=== PATIENT | female | born 1940 | race Caucasian/White ===

== ENCOUNTER 2016-12-10 23:14 | Observation (INO) | payer MEDICARE, BC ==
[~2016-12-10] VITALS: Ht 157.5 cm; Wt 50.0 kg
[2016-12-11] VITALS (12 sets, daily range): BP systolic 130–161; BP diastolic 60–85; PULSE 73–95; RESP 17–18; Ht 157.5 cm; Wt 50.0 kg
[2016-12-11 00:08] LABS: ADD SCAN DIFF NO
[2016-12-11 00:10] LABS: BASOPHILS % 0.5 % (0.0-2.0); EOSINOPHILS # 0.1 10^3/ul (0.0-0.5); HEMATOCRIT 38.3 % (37.0-47.0); HEMOGLOBIN 12.9 g/dl (12.0-16.0); LYMPHOCYTES # 2.1 10^3/ul (0.8-2.9); LYMPHOCYTES % 25.4 % (15.0-51.0); MEAN CORPUSCULAR HEMOGLOBIN 28.3 pg (29.0-33.0); MEAN CORPUSCULAR HGB CONC 33.7 g/dl (32.0-37.0); MEAN PLATELET VOLUME 10.6 fl (7.4-10.4); MONOCYTE # 0.8 10^3/ul (0.3-0.9); NEUTROPHIL # 5.1 10^3/ul (1.6-7.5); NEUTROPHILS % 62.9 % (39.0-77.0); PLATELET COUNT 330 10^3/UL (140-415); RED BLOOD COUNT 4.56 10^6/ul (4.20-5.40); RED CELL DISTRIBUTION WIDTH 13.5 % (11.5-14.5); WHITE BLOOD COUNT 8.1 10^3/ul (4.8-10.8)
--- NOTE | 2016-12-11 00:18 | RADRPT ---
PROCEDURE: CT BRAIN WITHOUT CONTRAST CLINICAL INDICATION: 76-year-old female with change in mental status and numbness. TECHNIQUE: The study was performed utilizing GE Razmir VCT 64-slice CT scanner. Direct axial sections were obtained from the foramen magnum to the vertex without the use of intravenous contrast material. Sagittal and coronal reformations were obtained. Sagittal and coronal reformations were obtained. One or more the following dose reduction techniques were utilized: automated exposure cont rol, adjustment of the mA and/or kV according to patient's size or use of iterative reconstruction t echnique. The images were viewed on a PACS workstation. CTD/vol = 44.7 mGy; Total Exam DLP = 720.2 mGy-cm. COMPARISON: None. FINDINGS: There is xvgw-uc-fjarhyca degree of diffuse cortical and central atrophy with compensatory ventricul ar enlargement. There is no evidence for mass effect or midline shift. There are periventricular a reas of decreased density consistent with microangiopathic ischemic changes. There is no evidence f or acute intra or extra-axial blood. Calcifications are seen within the intracranial carotid and ihsan tebral arteries bilaterally. The bony calvarium is intact. There is opacification of the right sphen oid sinus. There is polypoidal mucosal thickening within the posterior left sphenoid sinus. The ma stoid air cells are without significant soft tissue. IMPRESSION: 1. Nsom-un-wenopetn diffuse atrophy. 2. Microangiopathic ischemic changes. 3. Vascular calcifications. 4. Opacified right sphenoid sinus with mild dependent polypoid mucosal thickening within the left s phenoid sinus. .Eder Daily MD, Date Time Electronically viewed and signed by .Eder Daily MD, on 12/11/2016 00:18 .M/
[2016-12-11 00:26] LABS: INR 0.86; PROTIME 11.7 Sec (12.2-14.2); PT RATIO 0.9
[2016-12-11] MEDS ORDERED: LABETALOL HCL 20MG INJ IV ONE (00:30)
[2016-12-11 00:34] LABS: ALBUMIN 4.7 g/dl (3.3-4.9); ALBUMIN/GLOBULIN RATIO 5.22; BILIRUBIN,INDIRECT 0.3 mg/dl (0-1.1); BILIRUBIN,TOTAL 0.3 mg/dl (0.2-1.3); CALCIUM 9.8 mg/dl (8.4-10.2); CREATININE 0.68 mg/dl (0.44-1.00); POTASSIUM 3.8 mmol/L (3.5-5.1); TOTAL PROTEIN 5.6 g/dl (6.1-8.1)
[2016-12-11 00:45] LABS: TROPONIN-I 0.034 ng/ml (0.00-0.12)
[2016-12-11] MEDS ORDERED: GLUCAGON 1 MG INJ IM PRN ×2 (01:00→06:15)
[2016-12-11] MEDS ORDERED: DEXTROSE 50% 50 ML SYRINGE IV PRN ×4 (01:00→06:15)
[2016-12-11] MEDS ORDERED: INSULIN REGULAR, HUMAN 100 UNIT/1 ML 3ML VIAL SC ONE (01:00)
[2016-12-11] MEDS ORDERED: GLUCOSE GEL 15 GRAM TUBE BUCCAL PRN ×2 (01:00→06:15)
[2016-12-11] MEDS ORDERED: GLUCOSE GEL 15 GRAM TUBE PO PRN ×4 (01:00→06:15)
--- NOTE | 2016-12-11 01:10 | RADRPT ---
PROCEDURE: Portable chest x-ray. CLINICAL INDICATION: Chest pain. TECHNIQUE: Portable AP view of the chest. COMPARISON: None. FINDINGS: There are mildly prominent interstitial lung markings. No pulmonary conolidation is identified. Th e cardiac silhouette is magnified. No pleural effusion is seen. There is no pneumothorax. IMPRESSION: 1. Mildly prominent interstitial lung markings, possibly representing interstitial edema, a viral c hest infection, and/or chronic lung changes. RPTAT: HTAR .Taras Mancera MD, MD Date Time Electronically viewed and signed by .Taras Mancera MD, on 12/11/2016 01:09 .R/
[2016-12-11] MEDS ORDERED: SIMV10TA PO (01:23)
[2016-12-11] MEDS ORDERED: LINA1TAB7 PO (01:23)
[2016-12-11] MEDS ORDERED: AZIT250T6 PO (01:23)
[2016-12-11] MEDS ORDERED: DAPA10TA PO (01:23)
--- NOTE | 2016-12-11 02:23 | ERA ---
ER Documentation Chief Complaint Date/Time DATE: 12/11/16 TIME: 02:22 Chief Complaint left side face numbness HPI This is a 76 year female left-sided facial numbness this is resolved. She states that she had numbness of the face with severely elevated blood sugars. No fevers no chills. No focal muscular complaints. No focal neurological complaints. No ataxia. No other current issues ROS All systems reviewed and are negative except as per history of present illness. Medications Home Meds Reported Medications Azithromycin* (Azithromycin*) 250 Mg Tablet, 250 MG PO DAILY, #4 TAB 12/11/16 Simvastatin* (Zocor*) 10 Mg Tablet, 10 MG PO QHS, #30 TAB 12/11/16 Dapagliflozin Propanediol (Farxiga) 10 Mg Tablet, 10 MG PO DAILY, #30 TAB 12/11/16 Linagliptin/Metformin HCl (Jentadueto Xr 2.5 mg-1,000 mg) 1 Each Tab.bp.24h, 1 EACH PO, TAB 12/11/16 Allergies Allergies: Coded Allergies: Penicillins (Unverified Allergy, Mild, HIVES, 12/11/16) PMhx/Soc Medical and Surgical Hx: pt denies Surgical Hx History of Surgery: Yes (RIGHT FOOT, 3X) Anesthesia Reaction: No Hx Neurological Disorder: No Hx Respiratory Disorders: No Hx Cardiac Disorders: Yes (HTN) Hx Psychiatric Problems: No Hx Miscellaneous Medical Probl: Yes Hx Alcohol Use: No Hx Substance Use: No Hx Tobacco Use: No Smoking Status: Never smoker Physical Exam Vitals Vital Signs Date Time Temp Pulse Resp B/P Pulse Ox O2 Delivery O2 Flow Rate FiO2 12/11/16 00:58 20 20 141/83 96 Room Air 12/10/16 23:26 98.0 83 20 183/95 98 Physical Exam Const: [] Head: Atraumatic Eyes: Normal Conjunctiva ENT: Normal External Ears, Nose and Mouth. Neck: Full range of motion..~ No meningismus. Resp: Clear to auscultation bilaterally Cardio: Regular rate and rhythm, no murmurs Abd: Soft, non tender, non distended. Normal bowel sounds Skin: No petechiae or rashes Back: No midline or flank tenderness Ext: No cyanosis, or edema Neur: Awake and alert Psych: Normal Mood and Affect Result Diagram: 12/10/16 2355 12/10/16 2355 Results 24 hrs Laboratory Tests Test 12/10/16 23:55 12/11/16 02:02 White Blood Count 8.110^3/ul Red Blood Count 4.5610^6/ul Hemoglobin 12.9g/dl Hematocrit 38.3% Mean Corpuscular Volume 84.0fl Mean Corpuscular Hemoglobin 28.3pg Mean Corpuscular Hemoglobin Concent 33.7g/dl Red Cell Distribution Width 13.5% Platelet Count 74990^3/UL Mean Platelet Volume 10.6fl Neutrophils % 62.9% Lymphocytes % 25.4% Monocytes % 10.0% Eosinophils % 1.0% Basophils % 0.5% Nucleated Red Blood Cells % 0.0/100WBC Neutrophils # 5.110^3/ul Lymphocytes # 2.110^3/ul Monocytes # 0.810^3/ul Eosinophils # 0.110^3/ul Basophils # 0.010^3/ul Nucleated Red Blood Cells # 0.010^3/ul Prothrombin Time 11.7Sec Prothrombin Time Ratio 0.9 INR International Normalized Ratio 0.86 Activated Partial Thromboplast Time 24.0Sec Sodium Level 134mmol/L Potassium Level 3.8mmol/L Chloride Level 92mmol/L Carbon Dioxide Level 28mmol/L Anion Gap 18 Blood Urea Nitrogen 18mg/dl Creatinine 0.68mg/dl Glucose Level 492mg/dl Calcium Level 9.8mg/dl Total Bilirubin 0.3mg/dl Direct Bilirubin 0.00mg/dl Indirect Bilirubin 0.3mg/dl Aspartate Amino Transf (AST/SGOT) 22IU/L Alanine Aminotransferase (ALT/SGPT) 32IU/L Alkaline Phosphatase 237IU/L Troponin I 0.034ng/ml B-Type Natriuretic Peptide 128PG/ML Total Protein 5.6g/dl Albumin 4.7g/dl Globulin 0.90g/dl Albumin/Globulin Ratio 5.22 Bedside Glucose 363mg/dL Current Medications Medications (Trade) Dose Ordered Sig/Srinivasan Route PRN Reason Start Time Stop Time Status Last Admin Dose Admin Labetalol HCl (Labetalol) 20 mg ONCE ONCE IV 12/11/16 00:30 12/11/16 00:31 DC 12/11/16 00:37 Insulin Human Regular (Humulin R) 6 unit ONCE ONCE SC 6/14/17 01:00 12/11/16 01:01 DC 12/11/16 01:26 Miscellaneous Information 1 ea NOTE XX 12/11/16 01:00 Glucose (Glutose) 15 gm Q15M PRN PO DECREASED GLUCOSE 12/11/16 01:00 Glucose (Glutose) 22.5 gm Q15M PRN PO DECREASED GLUCOSE 12/11/16 01:00 Dextrose (D50w Syringe) 25 ml Q15M PRN IV DECREASED GLUCOSE 12/11/16 01:00 Dextrose (D50w Syringe) 50 ml Q15M PRN IV DECREASED GLUCOSE 12/11/16 01:00 Glucagon (Glucagen) 1 mg Q15M PRN IM DECREASED GLUCOSE 12/11/16 01:00 Glucose (Glutose) 15 gm Q15M PRN BUCCAL DECREASED GLUCOSE 12/11/16 01:00 Procedures/MDM EKG: Rate/Rhythm: Normal Sinus Rhythm QRS, ST, T-waves: No changes consistent w/ acute ischemia Impression: No evidence of ischemia or arrhythmia Chest X-ray 1V Interpreted by me: Soft Tissue: No acute abnormalities Bones: No acute abnormalities Mediastinum/Cardiac Silhouette/Lungs: No acute abnormalities CT of the head is negative Medical decision-makin-year-old TIA-like symptoms. At this point clinically stable. Hyperglycemia treated with subcu insulin. Patient will be admitted to hospitalist to telemetry setting. Critical Care: Time: 45 minutes Treatments/Evaluations: Close monitoring and treatment of unstable vital signs, cardiorespiratory, and neurologic status, while maintaining tight balance of fluid, respiratory, and cardiac interventions. Departure Diagnosis: Primary Impression: TIA (transient ischemic attack) Qualified Code: G45.9 - Transient cerebral ischemia, unspecified type Additional Impression: Hyperglycemia Condition: Serious KARENJOYCERAFALRomina Dec 11, 2016 02:23
[2016-12-11] MEDS ORDERED: NACL 0.9% 3 ML SYG IV SCH (07:30)
[2016-12-11] MEDS ORDERED: PANTOPRAZOLE 40 MG INJ IV SCH (07:30)
[2016-12-11] MEDS ORDERED: ONDANSETRON 4 MG INJ IV PRN (07:30)
--- NOTE | 2016-12-11 08:35 | HP ---
Date/Time of Note Date/Time of Note DATE: 12/11/16 TIME: 08:17 Assessment/Plan VTE Prophylaxis VTE Prophylaxis Intervention: SCD's Lines/Catheters IV [facility] Saline Lock Assessment/Plan Chief Complaint/Hosp Course This is a 76 year female being admitted to telemetry floor for: #1 left facial numbness: At the current time patient's symptoms have resolved. She did have elevated blood sugars in the 400s. Her facial numbness could have been related to the elevated blood sugars. However there was concern for possible TIA during the workup in the ED. CAT scan of the head was negative. Will order Dopplers and MRI of the brain. Will get a neurology consult. #2 diabetes mellitus: Patient had adequately blood sugar documented at 492 in the ED. patient currently does not appear to be in DKA. Will get a urinalysis. Currently is only on oral medications at home. Will get an A1c level. Put patient on insulin sliding scale. #3 hypertension: We will continue to monitor blood pressure continue medications. #4: Elevated alkaline phosphatase: This likely could be an acute phase reactant. Will trend if it continues to rise we will get a right upper quadrant ultrasound. #5 abnormal chest x-ray: Patient denies any cough there are no fevers or elevated white blood cell count at this time. We will continue to monitor the patient for any signs of infection. #5 DVT and GI prophylaxis: SCDs, Protonix. Problems: HPI/ROS Admit Date/Time Admit Date/Time Dec 11, 2016 at 01:36 Hx of Present Illness Chief complaint: Facial numbness This is a 76 year female left-sided facial numbness. She states that she had numbness of the face with severely elevated blood sugars. No fevers no chills. No focal muscular complaints. No focal neurological complaints. No ataxia. No other current issues. The numbness has since resolved being at the ER. Allergies: Penicillin Medications: See SHARMIN INMAN Const: As per HPI Eyes : No pain discharge or redness or change in visual acuity ENT: No pain, sore throat, congestion, congestion, dysphagia or discharge Respiratory: No shortness of breath, cough, sputum, wheezing, or pleuritic pain Cardiovascular: No chest pain, palpitation, PND, or edema GI : no change in appetite, abdominal pain, nausea, vomiting, diarrhea, constipation, or change in the color his stool Genitourinary: No dysuria, hematuria, flank pain , discharge or CVA tenderness Musculoskeletal: No joint pain, back pain, neck pain, restricted range of motion in neck or joints Skin: No rash, bruising or hives Neuro: As per HPI Endocrine: As per HPI Psych: No hallucination, depression, anxiety or suicidal ideation PMH/Family/Social Past Medical History Diabetes mellitus, hypertension Past Surgical History Right ankle surgery Family History Significant Family History: no pertinent family hx Social History Alcohol Use: none Smoking Status: Never smoker Drug Use: none Exam/Review of Systems Vital Signs Vitals Vital Signs Date Time Temp Pulse Resp B/P Pulse Ox O2 Delivery O2 Flow Rate FiO2 12/11/16 08:14 98.0 55 18 161/81 94 12/11/16 04:24 Room Air Exam Exam General: Patient is well-developed well-nourished The patient is alert oriented -3 lying comfortably in bed. HEENT: Atraumatic, normocephalic. The pupils are equal, round and reactive. Extraocular motor are intact Neck: Supple with full range of motion. No rigidity or meningismus Chest: Nontender Lungs: Clear to auscultation bilaterally no crackles rales or wheezing Heart: Normal S1-S2, Regular rhythm and rate. Abdomen: Soft , nontender, nondistended , bowel sounds are present. No guarding no rebound tenderness , No masses or organomegaly. No costovertebral temporal angle mass Extremities: Normal to inspection, no edema no cyanosis Neurologic: Normal mental status, speech normal, cranial nerves II through XII are intact, motor and sensory are intact, no focal weakness, patient currently states that her left-sided facial numbness has resolved. Additional Comments ROCEDURE: CT BRAIN WITHOUT CONTRAST CLINICAL INDICATION: 76-year-old female with change in mental status and numbness. TECHNIQUE: The study was performed utilizing [employer]TEKT 64-slice CT scanner. Direct axial sections were obtained from the foramen magnum to the vertex without the use of intravenous contrast material. Sagittal and coronal reformations were obtained. Sagittal and coronal reformations were obtained. One or more the following dose reduction techniques were utilized: automated exposure control, adjustment of the mA and/or kV according to patient's size or use of iterative reconstruction technique. The images were viewed on a PACS workstation. CTD/vol = 44.7 mGy; Total Exam DLP = 720.2 mGy-cm. COMPARISON: None. FINDINGS: There is rygr-ob-hawundri degree of diffuse cortical and central atrophy with compensatory ventricular enlargement. There is no evidence for mass effect or midline shift. There are periventricular areas of decreased density consistent with microangiopathic ischemic changes. There is no evidence for acute intra or extra-axial blood. Calcifications are seen within the intracranial carotid and vertebral arteries bilaterally. The bony calvarium is intact. There is opacification of the right sphenoid sinus. There is polypoidal mucosal thickening within the posterior left sphenoid sinus. The mastoid air cells are without significant soft tissue. IMPRESSION: 1. Uwfj-kt-pevvlafp diffuse atrophy. 2. Microangiopathic ischemic changes. 3. Vascular calcifications. 4. Opacified right sphenoid sinus with mild dependent polypoid mucosal thickening within the left sphenoid sinus. .Eder Daily MD, MD Date Time Electronically viewed and signed by .Eder Daily MD, MD on 12/11/2016 00:18 PROCEDURE: Portable chest x-ray. CLINICAL INDICATION: Chest pain. TECHNIQUE: Portable AP view of the chest. COMPARISON: None. FINDINGS: There are mildly prominent interstitial lung markings. No pulmonary conolidation is identified. The cardiac silhouette is magnified. No pleural effusion is seen. There is no pneumothorax. IMPRESSION: 1. Mildly prominent interstitial lung markings, possibly representing interstitial edema, a viral chest infection, and/or chronic lung changes. Labs Result Diagram: 12/10/16 2355 12/10/16 2355 Medications Medications Current Medications Diagnostic Test (Pha) (Accu-Chek) 1 ea 02 XX ; Start 12/12/16 at 02:00 Miscellaneous Information 1 ea NOTE XX ; Start 12/11/16 at 06:15 Glucose (Glutose) 15 gm Q15M PRN PO DECREASED GLUCOSE; Start 12/11/16 at 06:15 Glucose (Glutose) 22.5 gm Q15M PRN PO DECREASED GLUCOSE; Start 12/11/16 at 06: 15 Dextrose (D50w Syringe) 25 ml Q15M PRN IV DECREASED GLUCOSE; Start 12/11/16 at 06:15 Dextrose (D50w Syringe) 50 ml Q15M PRN IV DECREASED GLUCOSE; Start 12/11/16 at 06:15 Glucagon (Glucagen) 1 mg Q15M PRN IM DECREASED GLUCOSE; Start 12/11/16 at 06:15 Glucose (Glutose) 15 gm Q15M PRN BUCCAL DECREASED GLUCOSE; Start 12/11/16 at 06 :15 Ondansetron HCl (Zofran Inj) 4 mg Q6H PRN IV NAUSEA AND/OR VOMITING; Start at 07:30 Pantoprazole (Protonix Iv) 40 mg DAILY@06 IV ; Start 12/11/16 at 07:30 GELY ADRIAN Dec 11, 2016 08:28
[2016-12-11] MEDS: INSULIN ASPART [NOVOLOG] 3 ML PEN SC SCH ×5 (08:36→21:21)
--- NOTE | 2016-12-11 11:06 | RADRPT ---
PROCEDURE: Carotid ultrasound CLINICAL INDICATION: Left-sided facial numbness, transient ischemic attack, carotid bruits TECHNIQUE: Del Cid scale, color doppler, spectral doppler ultrasound of the bilateral carotid and ihsan tebral arteries. This study indirectly references the measurement of the distal ICA diameter as the denominator for s tenosis measurement. Validated velocity measurements with angiographic measurements, velocity criter ia are extrapolated from diameter data as defined by: *Cartoid artery stenosis: del cid-scale and Doppl er US diagnosis. Society of Radiologists in Ultrasound Consensus Conference. Radiology 2003; 229: 34 0-346. SRU Consensus Conference Criteria for the Diagnosis of Carotid Artery Stenosis* Degree of Stenosis, % ICA PSV, cm/sec Plaque Estimate, % ICA/CCA PSV Ratio Normal <125 None <2.0 <50 <125 <50 <2.0 50 69 125-230 >50 2.0-4.0 >70 but less than near occlusion >230 >50 <4.0 Near occlusion High, low, or undetectable Visible Variable Total occlusion Undetectable Visible, no detectable lumen Not applicable COMPARISON: No prior studies are available for comparison. FINDINGS: Location Right CCA58 cm/sec Prox ICA 34 cm/sec Mid ICA51 cm/sec Dist ICA49 cm/sec ECA83 cm/sec ICA/CCA1.5 Left CCA51 cm/sec Prox ICA 50 cm/sec Mid ICA41 cm/sec Dist ICA47 cm/sec ECA69 cm/sec ICA/CCA1.0 Plaque burden: No significant plaque is seen. Antegrade flow is seen within the vertebral arteries bilaterally. IMPRESSION: No evidence of a hemodynamically significant carotid stenosis. RPTAT: AADD .Gurvinder Howard MD, MD Date Time Electronically viewed and signed by .Gurvinder Howard MD, on 12/11/2016 11:05 .B/
[2016-12-11 11:24] LABS: MAGNESIUM 1.8 mg/dl (1.7-2.5)
--- NOTE | 2016-12-11 12:34 | CONS ---
Date/Time of Note Date/Time of Note DATE: 12/11/16 TIME: 12:29 Assessment/Plan Assessment/Plan Chief Complaint/Hosp Course 76 yo female with HTN, DM admitted with hyperglycemia and left facial numbness, exam consistent with mild left facial droop. Continue CVA workup, MRI Brain is planned without contrast. Continue aspirin. goal SBP <130/80 Check HBA1C , FLP, goal HBA1C <7.0% to optimize risk factors for secondary stroke prevention. ECHO PT/OT/Speech Problems: Consultation Date/Type/Reason Admit Date/Time Dec 11, 2016 at 01:36 Date of Consultation: Dec 11, 2016 Type of Consultation: Neurology Reason for Consultation facial weakness Referring Provider: NINI ADAMSON Hx of Present Illness 76 yo female with history of DM, HTN admitted with uncontrolled glucose in 400 range and left facial numbness. Since admission she reports improvement of symptoms, has no prior history of CVA. CTH unrevealing on admission. Carotid duplex negative. Patient is a poor historian but denies any active symptoms. Social History Alcohol Use: none Smoking Status: Never smoker Drug Use: none Exam/Review of Systems Vital Signs Vitals Vital Signs Date Time Temp Pulse Resp B/P Pulse Ox O2 Delivery O2 Flow Rate FiO2 12/11/16 12:13 95 12/11/16 11:52 98.6 18 130/60 94 12/11/16 04:24 Room Air Exam Constitutional: alert, frail, oriented Head: atraumatic, normocephalic Neurological: DTR's symmetric (mild left NLF flattening), nl mental status, nl speech, nl strength Results Result Diagram: 12/10/16 2355 12/10/16 2355 Results 24 hrs Laboratory Tests Test 12/10/16 23:55 12/11/16 02:02 12/11/16 08:24 12/11/16 09:30 White Blood Count 8.1 Red Blood Count 4.56 Hemoglobin 12.9 Hematocrit 38.3 Mean Corpuscular Volume 84.0 Mean Corpuscular Hemoglobin 28.3 L Mean Corpuscular Hemoglobin Concent 33.7 Red Cell Distribution Width 13.5 Platelet Count 330 Mean Platelet Volume 10.6 H Neutrophils % 62.9 Lymphocytes % 25.4 Monocytes % 10.0 Eosinophils % 1.0 Basophils % 0.5 Nucleated Red Blood Cells % 0.0 Neutrophils # 5.1 Lymphocytes # 2.1 Monocytes # 0.8 Eosinophils # 0.1 Basophils # 0.0 Nucleated Red Blood Cells # 0.0 Prothrombin Time 11.7 L Prothrombin Time Ratio 0.9 INR International Normalized Ratio 0.86 Activated Partial Thromboplast Time 24.0 L Sodium Level 134 L Potassium Level 3.8 Chloride Level 92 L Carbon Dioxide Level 28 Anion Gap 18 H Blood Urea Nitrogen 18 Creatinine 0.68 Glucose Level 492 *H Calcium Level 9.8 Total Bilirubin 0.3 Direct Bilirubin 0.00 Indirect Bilirubin 0.3 Aspartate Amino Transf (AST/SGOT) 22 Alanine Aminotransferase (ALT/SGPT) 32 Alkaline Phosphatase 237 H Troponin I 0.034 B-Type Natriuretic Peptide 128 Total Protein 5.6 L Albumin 4.7 Globulin 0.90 L Albumin/Globulin Ratio 5.22 Bedside Glucose 363 H 355 H Hemoglobin A1c Magnesium Level 1.8 Triglycerides Level 97 Cholesterol Level 235 H LDL Cholesterol, Calculated 138 HDL Cholesterol 78 Cholesterol/HDL Ratio 3.0 Thyroid Stimulating Hormone (TSH) Pending Test 12/11/16 12:10 Bedside Glucose 275 H Medications Medications Current Medications Diagnostic Test (Pha) (Accu-Chek) 1 ea 02 XX ; Start 12/12/16 at 02:00 Miscellaneous Information 1 ea NOTE XX ; Start 12/11/16 at 06:15 Glucose (Glutose) 15 gm Q15M PRN PO DECREASED GLUCOSE; Start 12/11/16 at 06:15 Glucose (Glutose) 22.5 gm Q15M PRN PO DECREASED GLUCOSE; Start 12/11/16 at 06: 15 Dextrose (D50w Syringe) 25 ml Q15M PRN IV DECREASED GLUCOSE; Start 12/11/16 at 06:15 Dextrose (D50w Syringe) 50 ml Q15M PRN IV DECREASED GLUCOSE; Start 12/11/16 at 06:15 Glucagon (Glucagen) 1 mg Q15M PRN IM DECREASED GLUCOSE; Start 12/11/16 at 06:15 Glucose (Glutose) 15 gm Q15M PRN BUCCAL DECREASED GLUCOSE; Start 12/11/16 at 06 :15 Ondansetron HCl (Zofran Inj) 4 mg Q6H PRN IV NAUSEA AND/OR VOMITING; Start at 07:30 Pantoprazole (Protonix Iv) 40 mg DAILY@06 IV Last administered on 12/11/16t 08: 36; Admin Dose 40 MG; Start 12/11/16 at 07:30 YAKOV FERNÁNDEZ MD Dec 11, 2016 12:34
[2016-12-11] MEDS ORDERED: ASPIRIN (EC) 81 MG TAB PO ONE (13:00)
[2016-12-11 15:07] LABS: ALBUMIN 4.4 g/dl (3.3-4.9); ALBUMIN/GLOBULIN RATIO 1.46; BILIRUBIN,INDIRECT 0.3 mg/dl (0-1.1); BILIRUBIN,TOTAL 0.3 mg/dl (0.2-1.3); CALCIUM 9.5 mg/dl (8.4-10.2); CREATININE 0.7 mg/dl (0.44-1.00); POTASSIUM 4.3 mmol/L (3.5-5.1); TOTAL PROTEIN 7.4 g/dl (6.1-8.1)
[2016-12-11] MEDS ORDERED: INSULIN GLARGINE [LANtus] 3 ML PEN SC SCH (15:30)
--- NOTE | 2016-12-11 17:11 | RADRPT ---
PROCEDURE: MRI Brain without contrast. CLINICAL INDICATION: TIA, facial numbness TECHNIQUE: Multiplanar MRI of the brain without contrast was performed on a 1.5 T scanner with the following sequences obtained: T1-weighted, T2-weighted/FLAIR, diffusion weighted (with ADC map), GR E. COMPARISON: CT brain 12/11/2016 FINDINGS: No acute/recent ischemic infarction or intracranial hemorrhage / blood degradation products are iden tified. No extra-axial fluid collection is seen. There is no mass effect. No midline shift is identified. The ventricles and sulci are mildly enlarged, compatible with generalized volume loss. Mild areas of increased T2 / FLAIR signal intensity are present in the periventricular and deep whit e matter, nonspecific but likely related to chronic small vessel ischemic changes. Flow voids are identified in the proximal intracranial arteries and dural sinuses suggesting patency . There is complete right and partial left sphenoid sinus opacification. IMPRESSION: 1. No evidence of acute intracranial pathology. 2. Mild generalized volume loss, with mild chronic small vessel ischemic changes. RPTAT: GG .Ramone Jernigan MD, MD Date Time Electronically viewed and signed by .Ramone Jernigan MD, on 12/11/2016 17:11 .O/
[2016-12-12] VITALS (12 sets, daily range): BP systolic 98–146; BP diastolic 52–72; PULSE 67–79; RESP 18–19
[2016-12-12] MEDS ORDERED: ACCU-CHEK XX SCH (02:00)
[2016-12-12] MEDS: ACCU-CHEK XX SCH (02:09)
[2016-12-12] MEDS: PANTOPRAZOLE (EC) 40 MG TAB PO SCH (06:03)
[2016-12-12] MEDS: INSULIN ASPART [NOVOLOG] 3 ML PEN SC SCH ×7 (07:58→20:58)
[2016-12-12 08:10] LABS: ADD SCAN DIFF NO
[2016-12-12 08:16] LABS: BASOPHIL # 0.1 10^3/ul (0.0-0.1); BASOPHILS % 0.8 % (0.0-2.0); EOSINOPHILS # 0.1 10^3/ul (0.0-0.5); EOSINOPHILS % 1.3 % (0.0-7.0); HEMATOCRIT 37.4 % (37.0-47.0); HEMOGLOBIN 12.7 g/dl (12.0-16.0); LYMPHOCYTES # 1.8 10^3/ul (0.8-2.9); LYMPHOCYTES % 23.8 % (15.0-51.0); MEAN CORPUSCULAR HEMOGLOBIN 29.1 pg (29.0-33.0); MEAN CORPUSCULAR VOLUME 85.8 fl (82.0-101.0); MEAN PLATELET VOLUME 10.9 fl (7.4-10.4); MONOCYTE # 0.6 10^3/ul (0.3-0.9); MONOCYTES % 8.3 % (0.0-11.0); NEUTROPHIL # 5.1 10^3/ul (1.6-7.5); NEUTROPHILS % 65.4 % (39.0-77.0); PLATELET COUNT 328 10^3/UL (140-415); RED BLOOD COUNT 4.36 10^6/ul (4.20-5.40); RED CELL DISTRIBUTION WIDTH 13.9 % (11.5-14.5); WHITE BLOOD COUNT 7.7 10^3/ul (4.8-10.8)
[2016-12-12 08:50] LABS: ALBUMIN 4.3 g/dl (3.3-4.9); ALBUMIN/GLOBULIN RATIO 1.48; BILIRUBIN,INDIRECT 0.4 mg/dl (0-1.1); BILIRUBIN,TOTAL 0.4 mg/dl (0.2-1.3); CALCIUM 9.5 mg/dl (8.4-10.2); CREATININE 0.72 mg/dl (0.44-1.00); POTASSIUM 4.7 mmol/L (3.5-5.1); TOTAL PROTEIN 7.2 g/dl (6.1-8.1)
[2016-12-12] MEDS: LISINOPRIL 5 MG TAB PO SCH (12:12)
[2016-12-12] MEDS: CHOLECALCIFEROL 1,000 UNIT TAB PO SCH (12:16)
[2016-12-12 13:18] LABS: THYROID STIMULATING HORMONE 0.494 MIU/L (0.465-4.680)
--- NOTE | 2016-12-12 16:03 | RADRPT ---
Echocardiogram Report Patient Name: KEVIN CLEVELAND Gender: Female Date: 1940 Study Date: 12-Dec-2016 Processing Associate: Sh[facility] Location: 5553 Ref. Physician: BLANCA YANG Quality: Adequate Procedures: Transthoracic echocardiogram with complete 2D, M-Mode, and doppler examination. Indications: Evaluate Left Ventricular function. 2D/M Mode Doppler Measurement Value Normal Ranges Measurement Value Normal Ranges LVIDd 2D 3.6 3.5 - 5.6 cm AV Peak John 1.0 m/sec LVIDs 2D 2.5 2.1 - 4.1 cm AV Peak PG 4.0 mmHg LVPWd 2D 1.0 0.6 - 1.1 cm LVOT Peak John 0.9 m/sec IVSd 2D 1.0 0.6 - 1.1 cm LVOT Peak PG 3.2 mmHg AoR Diam 2D 2.5 2.0 - 3.7 cm MV E Peak John 0.6 m/sec EDV 2D 53.7 cm3 MV A Peak John 1.0 m/sec ESV 2D 16.3 cm3 MV E/A 0.6 LA Dimen 2D 2.9 2.3 - 4.0 cm MV Decel Time 372 msec MV Decel [place] 2 MV E/A 0.6 Findings Left Ventricle: Normal left ventricular systolic function. Normal left ventricular cavity size. Normal left ventricular wall thickness. Ejection fraction is visually estimated at 65 %. Tissue Doppler/Mitral Doppler indices are consistent with impaired relaxation (Stage I diastolic dysfunction). Right Ventricle: Normal right ventricular size. Normal right ventricular systolic function. Left Atrium: The left atrium is normal in size. Right Atrium: The right atrium is normal in size. Mitral Valve: Normal appearance and function of the mitral valve with trace physiologic regurgitation. Aortic Valve: Normal appearance of the aortic valve. No significant aortic stenosis or insufficiency. Tricuspid Valve: Normal appearance and function of the tricuspid valve with trace physiologic regurgitation. Pulmonic Valve: Pulmonic valve not well visualized. There is trace pulmonic regurgitation. Pericardium: Normal pericardium with no significant pericardial effusion. Aorta: Normal aortic root. IVC: Normal size and normal respiratory collapse consistent with normal right atrial pressure. Conclusions Normal left ventricular systolic function. Normal left ventricular cavity size. Normal left ventricular wall thickness. Ejection fraction is visually estimated at 65 %. Tissue Doppler/Mitral Doppler indices are consistent with impaired relaxation (Stage I diastolic dysfunction). Normal right ventricular size. Normal right ventricular systolic function. The left atrium is normal in size. The right atrium is normal in size. No significant valvular stenosis or regurgitation seen. Normal pericardium with no significant pericardial effusion. Electronically Signed By: Burak Chandler 12-Dec-2016 16:03:01 0700 Patient Name: KEVIN CLEVELAND Study Date: 12-Dec-[id number]
[2016-12-12] MEDS: metFORMIN 500 MG TAB GTB SCH (17:15)
--- NOTE | 2016-12-12 17:52 | CONS ---
Date/Time of Note Date/Time of Note DATE: 12/12/16 TIME: 17:48 Consult Date/Type/Reason Admit Date/Time Dec 11, 2016 at 01:36 Initial Consult Date 12/11/16 Type of Consultation: Neurology Reason for Consultation TIA eval Ordering Provider: NINI ADAMSON Subjective no further events Objective Vital Signs Date Time Temp Pulse Resp B/P Pulse Ox O2 Delivery O2 Flow Rate FiO2 12/12/16 16:08 98.0 75 18 140/69 99 12/11/16 04:24 Room Air Intake and Output 12/11/16 12/11/16 12/12/16 15:00 23:00 07:00 Intake Total 400 ml 210 ml Balance 400 ml 210 ml Exam Constitutional: alert, frail, oriented Head: atraumatic, normocephalic Neurological: DTR's symmetric (mild left NLF flattening), nl mental status, nl speech, nl strength Results/Medications Result Diagram: 12/12/16 0622 12/12/16 0622 Results 24 hrs Laboratory Tests Test 12/11/16 17:57 12/11/16 21:18 12/12/16 02:03 12/12/16 06:22 Bedside Glucose 323 H 283 H 290 H White Blood Count 7.7 Red Blood Count 4.36 Hemoglobin 12.7 Hematocrit 37.4 Mean Corpuscular Volume 85.8 Mean Corpuscular Hemoglobin 29.1 Mean Corpuscular Hemoglobin Concent 34.0 Red Cell Distribution Width 13.9 Platelet Count 328 Mean Platelet Volume 10.9 H Neutrophils % 65.4 Lymphocytes % 23.8 Monocytes % 8.3 Eosinophils % 1.3 Basophils % 0.8 Nucleated Red Blood Cells % 0.0 Neutrophils # 5.1 Lymphocytes # 1.8 Monocytes # 0.6 Eosinophils # 0.1 Basophils # 0.1 Nucleated Red Blood Cells # 0.0 Sodium Level 135 Potassium Level 4.7 Chloride Level 99 Carbon Dioxide Level 28 Anion Gap 13 Blood Urea Nitrogen 19 Creatinine 0.72 Glucose Level 311 H Calcium Level 9.5 Total Bilirubin 0.4 Direct Bilirubin 0.00 Indirect Bilirubin 0.4 Aspartate Amino Transf (AST/SGOT) 24 Alanine Aminotransferase (ALT/SGPT) 34 Alkaline Phosphatase 106 Total Protein 7.2 Albumin 4.3 Globulin 2.90 Albumin/Globulin Ratio 1.48 Test 12/12/16 07:56 12/12/16 12:10 12/12/16 17:14 Bedside Glucose 294 H 278 H 205 Medications Current Medications Diagnostic Test (Pha) (Accu-Chek) 1 ea 02 XX Last administered on 12/12/16 02: 09; Admin Dose 1 EA; Start 12/12/16 at 02:00 Miscellaneous Information 1 ea NOTE XX ; Start 12/11/16 at 06:15 Glucose (Glutose) 15 gm Q15M PRN PO DECREASED GLUCOSE; Start 12/11/16 at 06:15 Glucose (Glutose) 22.5 gm Q15M PRN PO DECREASED GLUCOSE; Start 12/11/16 at 06: 15 Dextrose (D50w Syringe) 25 ml Q15M PRN IV DECREASED GLUCOSE; Start 12/11/16 at 06:15 Dextrose (D50w Syringe) 50 ml Q15M PRN IV DECREASED GLUCOSE; Start 12/11/16 at 06:15 Glucagon (Glucagen) 1 mg Q15M PRN IM DECREASED GLUCOSE; Start 12/11/16 at 06:15 Glucose (Glutose) 15 gm Q15M PRN BUCCAL DECREASED GLUCOSE; Start 12/11/16 at 06 :15 Ondansetron HCl (Zofran Inj) 4 mg Q6H PRN IV NAUSEA AND/OR VOMITING; Start at 07:30 Pantoprazole (Protonix Tab) 40 mg DAILY@06 PO Last administered on 12/12/16 06 :03; Admin Dose 40 MG; Start 12/12/16 at 06:00 Atorvastatin Calcium (Lipitor) 80 mg HS PO ; Start 12/12/16 at 21:00 Insulin Glargine (Lantus) 12 unit DAILY@20 SC ; Start 12/12/16 at 20:00 Lisinopril (Zestril) 5 mg DAILY PO Last administered on 12/12/16 12:12; Admin Dose 5 MG; Start 12/12/16 at 12:00 Cholecalciferol (Vitamin D) 1,000 unit DAILY PO Last administered on 12/12/16 12:16; Admin Dose 1,000 UNIT; Start 12/12/16 at 13:00 Assessment/Plan Chief Complaint/Hosp Course 76 yo female with HTN, DM admitted with hyperglycemia and left facial numbness, exam consistent with mild left facial droop. MRI Brain is negative for any acute process goal SBP <130/80 LDL: 138 start Lipitor 80 mg, HBA1C <7.0% to optimize risk factors for secondary stroke prevention. HBA1C is pending ECHO wnl PT/OT/Speech continue therapies dc planning outpatient neurology follow up Problems: YAKOV FERNÁNDEZ MD Dec 12, 2016 17:52
--- NOTE | 2016-12-12 18:45 | PN ---
DATE: 12/12/2016 SUBJECTIVE DATA: Denies any headache. Blood sugars have been running high. OBJECTIVE DATA: VITAL SIGNS: Temperature 97.6, pulse rate 75, respiratory rate 18, blood pressure 140/69, oxygen saturation 99% on room air. GENERAL: This is a 76-year-old female patient lying in bed in no apparent distress. HEENT: Head normocephalic and atraumatic. Eyes: Anicteric sclerae. Conjunctivae clear. ENT: Nasal septum is midline. Oral mucosa is moist. NECK: Supple. No JVD noticed. RESPIRATORY: Bilaterally clear to auscultation. No adventitious breath sounds. No use of accessory muscles of respiration. CARDIAC: Regular rate and rhythm. No murmurs heard. ABDOMEN: Soft, nontender and nondistended. Bowel sounds positive in all 4 quadrants. GENITOURINARY: Deferred. EXTREMITIES: No cyanosis, no clubbing, no edema. Peripheral pulses palpable. NEUROLOGIC: The patient is awake, alert and oriented. Cranial nerves are grossly intact. LABORATORY AND DIAGNOSTIC DATA: WBC 7.7, hemoglobin 12.7, hematocrit 37.4, platelet count 328. Sodium 135, potassium 4.7, chloride 99, carbon dioxide 28, anion gap 13, BUN 19, creatinine 0.72, glucose 311, calcium 9.5. MRI of the brain: No evidence of acute intracranial pathology. A 2D echocardiogram: Ejection fraction of 65%. Stage I diastolic dysfunction. ASSESSMENT AND PLAN: 1. Transient left facial numbness. Status post evaluation by neurology. A brain MRI and brain CT scan negative for any acute stroke. Continue aspirin and statin as per neurology. 2. Type 2 diabetes mellitus, uncontrolled. Hemoglobin A1c is send out. Continue sliding scale insulin with premeal insulin and Lantus insulin. We will adjust insulin to obtain optimal blood sugar control. Diabetes education consult has been called. 3. Dyslipidemia. The patient will be continued on statins. 4. Vitamin D deficiency. We will start the patient on vitamin D supplements. 5. Interstitial markings present on chest x-ray. Etiology unclear. The patient has no evidence of any fluid overload. Echocardiogram showing preserved left ventricular ejection fraction. We will repeat a chest x-ray in the morning. 6. Fluid, electrolytes and nutrition. Carbohydrate controlled, low cholesterol diet. 7. Deep venous thrombosis prophylaxis. Bilateral sequential compression devices. 8. Gastrointestinal prophylaxis. Proton pump inhibitors. PLAN: Adjust insulin dosing to obtain optimal blood sugar control. Obtain physical therapy evaluation and speech therapy evaluation. Start the patient on AMARILIS inhibitors provided the patient's elevated blood pressure and also underlying diabetes mellitus. Case discussed with Dr. Adamson. BLANCA ADAMSON MD, AM/MORE Conf#: [id number] DID#: [id number] MTDD
[2016-12-12] MEDS ORDERED: INSULIN GLARGINE [LANtus] 3 ML PEN SC SCH (20:00)
[2016-12-12] MEDS ORDERED: ATORVASTATIN 80 MG TAB PO SCH (21:00)
[2016-12-13] VITALS (9 sets, daily range): BP systolic 94–132; BP diastolic 53–89; PULSE 67–74; RESP 18–20
[2016-12-13] MEDS: ACCU-CHEK XX SCH (02:00)
[2016-12-13] MEDS: PANTOPRAZOLE (EC) 40 MG TAB PO SCH (06:43)
[2016-12-13 07:42] LABS: ADD SCAN DIFF NO
[2016-12-13 07:49] LABS: BASOPHIL # 0.1 10^3/ul (0.0-0.1); BASOPHILS % 0.6 % (0.0-2.0); EOSINOPHILS # 0.1 10^3/ul (0.0-0.5); EOSINOPHILS % 1.3 % (0.0-7.0); HEMATOCRIT 38.4 % (37.0-47.0); HEMOGLOBIN 12.5 g/dl (12.0-16.0); LYMPHOCYTES # 2.2 10^3/ul (0.8-2.9); LYMPHOCYTES % 25.3 % (15.0-51.0); MEAN CORPUSCULAR HEMOGLOBIN 27.9 pg (29.0-33.0); MEAN CORPUSCULAR HGB CONC 32.6 g/dl (32.0-37.0); MEAN CORPUSCULAR VOLUME 85.7 fl (82.0-101.0); MEAN PLATELET VOLUME 10.6 fl (7.4-10.4); MONOCYTE # 0.7 10^3/ul (0.3-0.9); MONOCYTES % 7.5 % (0.0-11.0); NEUTROPHIL # 5.7 10^3/ul (1.6-7.5); PLATELET COUNT 311 10^3/UL (140-415); RED BLOOD COUNT 4.48 10^6/ul (4.20-5.40); RED CELL DISTRIBUTION WIDTH 14.1 % (11.5-14.5); WHITE BLOOD COUNT 8.7 10^3/ul (4.8-10.8)
[2016-12-13] MEDS: INSULIN ASPART [NOVOLOG] 3 ML PEN SC SCH ×6 (07:58→18:01)
[2016-12-13 08:16] LABS: MAGNESIUM 1.6 mg/dl (1.7-2.5); PHOSPHORUS 4.6 mg/dl (2.5-4.9)
[2016-12-13 08:34] LABS: CALCIUM 9.7 mg/dl (8.4-10.2); CREATININE 0.77 mg/dl (0.44-1.00); POTASSIUM 4.4 mmol/L (3.5-5.1)
[2016-12-13] MEDS: metFORMIN 500 MG TAB GTB SCH ×2 (08:45→17:55)
[2016-12-13] MEDS: LISINOPRIL 5 MG TAB PO SCH (08:46)
[2016-12-13] MEDS: CHOLECALCIFEROL 1,000 UNIT TAB PO SCH (08:46)
--- NOTE | 2016-12-13 09:38 | RADRPT ---
PROCEDURE: XR Chest 1 View. CLINICAL INDICATION: Shortness of breath TECHNIQUE: AP view of the chest was obtained. COMPARISON: Yesterday FINDINGS: The cardiomediastinal silhouette is within normal limits. No consolidations are identified. No pne umothorax is seen. Mild interstitial prominence in both lungs is unchanged. The osseous structures a re osteopenic, but appear grossly intact. IMPRESSION: Stable mild interstitial prominence in both lungs. Interstitial prominence could be chronic. RPTAT: AA .Oral Islas MD, MD Date Time Electronically viewed and signed by .Oral Islas MD, on 12/13/2016 09:38 .P/
--- NOTE | 2016-12-13 11:32 | PDOCDIS ---
Discharge Instructions DIAGNOSIS Discharge Diagnosis: TIA CONDITION Patient Condition: Stable HOME CARE INSTRUCTIONS: Special Diet: low fat low chlolesterol diet FOLLOW UP/APPOINTMENTS Appointments Aamir Urrutia MD Specialty: Internal Medicine Office Address: [address] [place], [place] [id number] Office OTHER ORDERS: Other Orders: 1. Take medications as per prescription. 2. Take a low-cholesterol, carbohydrate controlled diet. 3. Resume activities as tolerated. 4. Follow-up with your primary care physician in 1 week. If you do not have a primary care physician please call Dr. Aamir Urrutia's office. 5. Please call 911 or go to the nearest emergency room if you have chest pain, sudden onset of slurred speech, or sudden onset of focal weakness. BLANCA YANG NP Dec 13, 2016 11:31
[2016-12-13] MEDS ORDERED: LANT3I SC (11:34)
[2016-12-13] MEDS ORDERED: CHOL100062 PO (11:34)
[2016-12-13] MEDS ORDERED: ATOR80TA75 PO (11:34)
[2016-12-13] MEDS ORDERED: LISI-313 PO (11:34)
[2016-12-13] MEDS ORDERED: NOVO3I SC (11:34)
[2016-12-13] MEDS ORDERED: MAGNESIUM CHLORIDE (SR) 64 MG TAB PO ONE (12:00)
--- NOTE | 2016-12-13 12:54 | DS ---
DATE OF ADMISSION: 12/11/2016 DATE OF DISCHARGE: 12/13/2016 FINAL DIAGNOSES: 1. Transient left facial numbness. Possible transient ischemic attack. 2. Type 2 diabetes mellitus, uncontrolled. 3. Dyslipidemia. 4. Vitamin D deficiency. 5. Essential hypertension. CONSULTATIONS: Dr. Sydni Crews, neurologist. HOSPITAL COURSE: This is a 76-year-old female with past medical history of type 2 diabetes mellitus, who came to the emergency room with a chief complaint of left-sided facial numbness. The patient was also noticed to have elevated blood sugars in the emergency room. Her blood pressure was also high in the emergency room. Provided the patient's history of present illness, her comorbidities and the diagnostic findings, a clinical decision was made to admit the patient to inpatient setting for further evaluation. The patient was admitted to inpatient telemetry floor. A neurology consult was obtained. The patient's brain CT scan that was done in the emergency room was negative for any acute intracranial findings. The patient's carotid Doppler study showed no evidence of any hemodynamically significant carotid stenosis. The patient subsequently underwent a brain MRI that was negative for any acute intracranial pathology. The patient was started on aspirin and statins. The patient was noticed to have underlying dyslipidemia. The patient's statin dosing was increased. The patient was noticed to have significant vitamin D deficiency. The patient was started on vitamin D supplements. The patient was noticed to have uncontrolled blood sugars. The patient's hemoglobin A1c was sent out. The patient was started on sliding scale insulin, along with basal insulin. The patient will be seen by health promotion educator and the patient will be sent home on insulin along with oral antidiabetic agents. The patient was seen by physical therapy and physical therapy recommended no skilled physical therapy needs. The patient's symptoms of left facial numbness are completely resolved. The patient's 2D echocardiogram showed preserved left ventricular ejection fraction. Neurologist recommended outpatient neurology followup. This has been set up with case management. The patient had a stable hospital course. The patient is stable to be discharged home. The patient was cleared by consultants to be discharged home. DISCHARGE DISPOSITION AND PLAN: The patient will be discharged home today. The patient was instructed to take medications as per prescription. The patient was instructed on low cholesterol, carbohydrate controlled diet. The patient was instructed to resume activities as tolerated. The patient was instructed to follow up with her primary care physician in 1 week and if she does not have a primary care physician, to please call Dr. Aamir Urrutia's office. The patient was instructed to call 911 or go to the nearest emergency room if she has chest pain, if she has slurred speech or sudden onset of focal weakness. The patient verbalized understanding of her discharge instructions. CONDITION AT DISCHARGE: Stable. Discharge Medications 1. Atorvastatin 80 mg p.o. nightly 2. Vitamin D3 1000 units p.o. daily 3. NovoLog insulin 4 units subcutaneously with meals 4. Lantus insulin 12 units subcutaneously nightly 5. Lisinopril 5 mg p.o. daily 6. Linagliptin/metformin [2.10/999] 1 tablet p.o. daily 7. Farxiga 10 mg p.o. daily PERTINENT LABORATORY AND DIAGNOSTIC DATA: 1. 2D echocardiogram. Ejection fraction of 65%. Stage I diastolic dysfunction. 2. Latest chest x-ray. Stable mild interstitial prominence in both lungs. 3. Brain CT scan. Mild to moderate diffuse atrophy. Microangiopathic ischemic changes. Vascular calcifications. Opacified right sphenoid sinus with a mild dependent polypoid mucosal thickening within the left sphenoid sinus. 4. Carotid Doppler study revealed no hemodynamically significant carotid stenosis. 5. Brain MRI. No evidence of acute intracranial pathology. Mild generalized volume loss with mild chronic small vessel ischemic changes. 6. Hemoglobin A1c pending. 7. Fasting lipid panel: Triglycerides 97, total cholesterol 235, LDL 130, HDL 70. 8. CBC: WBC 8.7, hemoglobin 12.5, hematocrit 38.4. 9. BMP: Sodium 136, potassium 4.4, chloride 90, carbon dioxide 27, anion gap 13, BUN 21, glucose 170, calcium 9.7, phosphorus 4.6, magnesium 1.6. At this time I would like to thank Dr. Crews for seeing the patient and providing clinical recommendations. The case and management of this patient was fully discussed with Dr. Adamson. Approximately 35 minutes was spent on coordinating the discharge on this patient. BLANCA ADAMSON MD, AM/MORE Conf#: [id number] DID#: [id number] MTDD
== END 2016-12-13 18:13 | disposition home or self-care (01) ==
LOC: E/R 23:14 → MS4 12-11 01:36
PROVIDERS: ADMIT Family Medicine; ATTEND Family Medicine
DX: R20.0 Anesthesia of skin (principal); E11.65 Type 2 diabetes mellitus with hyperglycemia; E78.5 Hyperlipidemia, unspecified; E55.9 Vitamin D deficiency, unspecified; I10 Essential (primary) hypertension
CPT/HCPCS: 36415; 70450; 70551; 71010; 80048; 80053; 80061; 82306; 82652; 82962; 83036; 83735; 83880; 84100; 84443; 84484; 85025; 85610; 85730; 92610; 93005; 93306; 93880; 96372; 96374; 97162; 99291; C9113; G0378; G8996; G8997; G8998; J1815